=== PATIENT | female | born 1930 | race Caucasian/White ===

== ENCOUNTER 2017-07-28 06:04 | Emergency (ER) | payer MEDICARE ==
--- NOTE | 2017-07-28 06:44 | Emergency Department Record ---
History of Present Illness - General Chief Complaint: Fall Injury Stated Complaint: FALL Time Seen by Provider: 07/28/17 06:23 Source: Patient Mode of Arrival: EMS Limitations: No limitations - History of Present Illness Initial comments: 86 yo female presents to ED for evaluation of increased confusion "at night" per the patient and her son at the bedside. Patient reports that she has increased urinary frequency at night, and that she was unable to get back into bed this morning resulting the patient calling her son for help. Patient denies focal weakness on examination and denies fall or injury. Patient was seen 07/26 for possible TIA, was subsequently diagnosed with UTI and started on Keflex. Son reports that the patient was outdoors cleaning her sidewalk the afternoon after she was taken to the Hospital and back to her baseline. Patient' s son reports that the patient has not seen her PCP for these symptoms. Onset/Timin -: Minutes(s) Consistency: Intermittent Improves with: None Worsens with: None Associated Symptoms: Denies other symptoms Treatments Prior to Arrival: None - [place] Coma Scale Eye Response: (4) Open spontaneously Motor Response: (6) Obeys commands Verbal Response: (5) Oriented Sharda Total: 15 - Related Data Allergies Allergy/AdvReac Type Severity Reaction Status Date / Time No Known Drug Allergies Allergy Unverified 05/31/17 16:30 Travel Screening - Travel/Exposure Within Last 30 Days Have you traveled within the last 30 days?: No - Travel Symptoms Symptom Screening: None Review of Systems Constitutional: Denies: Chills, Fever, Malaise, Night sweats Eyes: Denies: Eye discharge, Eye pain ENT: Denies: Congestion, Ear pain, Epistaxis Respiratory: Denies: Cough, Dyspnea Cardiovascular: Denies: Chest pain, Dyspnea on exertion, Edema Endocrine: Denies: Fatigue, Heat or cold intolerance Gastrointestinal: Denies: Abdominal pain, Nausea, Vomiting Genitourinary: Reports: Frequency. Denies: Incontinence, Retention Musculoskeletal: Denies: Arthralgia, Back pain, Gout, Joint swelling Skin: Denies: Bruising, Change in color Neurological: Reports: Confusion. 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) - GI Hx GI Disorders: No - Hx Genitourinary Disorders: No - ENDOCRINE Hx Endocrine Disorders: No - MUSCULOSKELETAL Hx Musculoskeletal Disorders: No - PSYCH Hx Psych Problems: Yes Hx Depression: Yes - HEMATOLOGY/ONCOLOGY Hx Hematology/Oncology Disorders: No Family Medical History Any Significant Family History?: Yes Hx Diabetes: Brother/Sister Physical Exam - General General Appearance: Alert, Oriented x3, Cooperative, No acute distress Limitations: No limitations - Head Head exam: Atraumatic, Normocephalic, Normal inspection Head exam detail: negative: Abrasion, Contusion, Quarles's sign, General tenderness, Hematoma, Laceration - Eye Eye exam: Normal appearance. negative: Conjunctival injection, Periorbital swelling, Periorbital tenderness, Scleral icterus - ENT Ear exam: negative: Auricular hematoma, Auricular trauma Nasal Exam: negative: Active bleeding, Discharge, Dried blood, Foreign body Mouth exam: negative: Drooling, Laceration, Muffled voice, Tongue elevation - Neck Neck exam: Normal inspection. negative: Meningismus, Tenderness - Respiratory Respiratory exam: Normal lung sounds bilaterally. negative: Rales, Respiratory distress, Rhonchi, Stridor - Cardiovascular Cardiovascular Exam: Regular rate, Normal rhythm, Normal heart sounds - GI/Abdominal GI/Abdominal exam: Soft. negative: Rebound, Rigid, Tenderness - Rectal Rectal exam: Deferred - exam: Deferred - Extremities Extremities exam: Normal inspection, Pedal edema (1+ edema bilaterally). negative: Calf tenderness, Tenderness - Back Back exam: Denies: CVA tenderness (R), CVA tenderness (L) - Neurological Neurological exam: Alert, Normal gait, Oriented X3 - Psychiatric Psychiatric exam: Normal affect, Normal mood - Skin Skin exam: Normal color. negative: Abrasion Type of lesion: negative: abrasion Course Vital Signs 07/28/17 06:06 Temperature 98.7 F Pulse Rate 61 Respiratory 16 Rate Blood Pressure 139/56 Pulse Ox 96 - Reevaluation(s) Reevaluation #1: 07/28/17 06:58 Previous records reviewed from [facility] 07/26/17: CT Brain: No acute process CXR: Some degree of cardiomegaly, mild interstitial pulmonary edema Laboratory results were reviewed and are grossly unremarkable for an acute process UA: 10-25 Epithelial cells 5-10 WBCs 0-2 RBCs Bacteria: None After examination of the patient, there is no clinical evidence for an acute CVA or focal weakness on examination. Following discussion with the patient and her son, will obtain laboratory studies and repeat UA (previous appears c/w contamination). Son is in agreement with the plan of care as discussed. Reevaluation #2: 07/28/17 07:25 Laboratory studies were reviewed and are grossly unremarkable for an acute process. Patient and her son were updated on all results, recommended follow-up with the patient's PCP for further evaluation of her night-time symptoms. Medical Decision Making - Lab Data Result diagrams: 07/28/17 06:56 07/28/17 06:45 Disposition Disposition: Discharge Clinical Impression: Nocturnal confusion, Urinary frequency Disposition: Home, Self-Care Condition: (2) Stable Instructions: Dysuria (ED) Additional Instructions: Return to ED if your symptoms worsen or if you have any concerns. Follow-up with your family doctor in 3-5 days as directed. Forms: Patient Portal Access Time of Disposition: 07:26 Quality - Quality Measures Quality Measures: N/A - Blood Pressure Screening Does Patient Have Any of the Following: Active Dx of HTN Blood Pressure Classification: Pre-Hypertensive BP Reading Systolic Measurement: 139 Diastolic Measurement: 56 Screening for High Blood Pressure: Patient Exclusion, Hx of HTN [G9744]
[2017-07-28] MEDS ORDERED: 0.9 % SODIUM CHLORIDE 1000ML 500 ML IV SCH (06:45)
[2017-07-28 06:54] LABS: BASO % 0.1 % (0-6); EOS % 1.9 % (0-6); GRAN % 69.5 % (47-80); HEMOGLOBIN 12.4 gm/dl (11.6-16.0); LYMPH % 15.8 % (16-45); MEAN CORPUSCULAR HEMOGLOBIN 29.2 pg (27-33); MEAN CORPUSCULAR HGB CONC 31.8 g/dl (32-36); MEAN PLATELET VOLUME 9.9 fl (7.4-10.4); MONO % 12.7 % (0-9); PLATELET COUNT 283 K/uL (130-400); RED BLOOD COUNT 4.24 M/uL (3.80-5.40); RED CELL DISTRIBUTION WIDTH 13.5 % (11.5-14.5); WHITE BLOOD COUNT W/O DIFF 6.9 K/uL (4.2-12.2)
[2017-07-28 07:07] LABS: BLOOD UREA NITROGEN 18 mg/dL (8-23); CREATININE 0.5 mg/dL (0.5-0.9); EST GLOMERULAR FILTRATION RATE > 60 mL/min
[2017-07-28 07:08] LABS: TOTAL PROTEIN 6.2 g/dL (6.6-8.7)
[2017-07-28 07:10] LABS: GLUCOSE,RANDOM 104 mg/dL (74-109)
[2017-07-28 07:12] LABS: ALB/GLOB RATIO 1.6 (1.1-1.8); ALBUMIN 3.8 g/dL (4.0-5.0); ALT/SGPT 10 U/L (<33); AST/SGOT 15 U/L (10.0-35.0)
[2017-07-28 07:13] LABS: ALKALINE PHOSPHATASE 86 U/L (35-104)
[2017-07-28 07:15] LABS: URINE APPEARANCE CLEAR; URINE BILIRUBIN NEGATIVE (NEGATIVE); URINE BLOOD NEGATIVE (NEGATIVE); URINE COLOR YELLOW; URINE GLUCOSE (UA) NEGATIVE (NEGATIVE); URINE KETONE NEGATIVE (NEGATIVE); URINE LEUKOCYTE ESTERASE NEGATIVE (NEGATIVE); URINE NITRITE NEGATIVE (NEGATIVE); URINE PROTEIN NEGATIVE (NEGATIVE); URINE UROBILINOGEN 0.2 E.U./dL (0.20 - 1.00)
== END 2017-07-28 07:48 | disposition home or self-care (01) ==
LOC: ER 06:04
DX: R41.0 Disorientation, unspecified (principal); R35.0 Frequency of micturition; I10 Essential (primary) hypertension
CPT/HCPCS: 80053; 81003; 85025; 96360; 99284; J7030

== ENCOUNTER 2017-10-18 01:40 | Emergency (ER) | payer MEDICARE ==
--- NOTE | 2017-10-18 01:58 | Emergency Department Record ---
History of Present Illness - General Chief Complaint: Shortness of breath Stated Complaint: [place]OT[place] Time Seen by Provider: 10/18/17 01:45 Source: Patient, Family Mode of Arrival: Wheelchair Limitations: Altered mental status - History of Present Illness Initial Comments: 86 yo female presents with her granddaughter (Desi Taylor) due to several concerns. The granddaughter stays with the patient on weekends. She states she has been a little "off" all day. Her appetite has been decreased. Around 8pm she seemed tired and slower. The granddaughter thought her breathing looked "shallow". At this point she was able to put her to bed. She woke up an hour ago standing in her room screaming saying she can't talk or walk. She states the patient said her back hurt. The patient is oriented to name, [facility], family (her granddaughter). She denies headache, chest pain, shortness of breath, or dizziness. She states she has dry mouth. She has a mild pain left lower back "wear her pant's line is at". No vomiting, diarrhea, swelling, falls or injury. Dr Hartmann is the PCP per the daughter. Three years ago she had and ICH from fall. No recent falls. The patient recalls her prior PCP was Dr Ford. The granddaughter states she underwent testing at [facility] outpatient geriatric specialist and was diagnosed with moderate dementia in September 2017. The granddaughter states she gets "sun downer's" every night for several months. The symptoms are confusion, hallucinations. Her son from [place], [place] has moved in the with her the last few months with the granddaughter helping on the weekends. She is alone during the day and with him at night. Complaint: Shortness of breath -: Hour(s) Severity: Moderate Quality: Other Consistency: Constant Improves With: Nothing Worsens With: Nothing Known History Of: Other Context: Other Associated Symptoms: Denies other symptoms Treatments Prior to Arrival: None - Related Data Home Medications Medication Instructions Recorded Confirmed Last Taken Quetiapine Fumarate [Seroquel] 25 mg PO QHS 10/18/17 10/18/17 Unknown Allergies Allergy/AdvReac Type Severity Reaction Status Date / Time No Known Drug Allergies Allergy Unverified 09/29/17 14:33 Review of Systems Constitutional: Reports: Malaise, Weakness. Denies: Chills, Fever Eyes: Denies: Eye discharge ENT: Denies: Congestion, Ear pain, Epistaxis, Throat pain Respiratory: Reports: Dyspnea. Denies: Cough, Hemoptysis, Stridor, Wheezes Cardiovascular: Denies: Chest pain, Palpitations, Syncope Endocrine: Reports: Fatigue. Denies: Polydipsia, Polyuria Gastrointestinal: Denies: Abdominal pain, Diarrhea, Nausea, Vomiting Genitourinary: Reports: Frequency. Denies: Dysuria Musculoskeletal: Reports: Back pain. Denies: Arthralgia, Joint swelling, Myalgia Skin: Denies: Bruising, Change in color, Rash Neurological: Reports: Abnormal gait, Weakness. 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) - GI Hx GI Disorders: No - Hx Genitourinary Disorders: No - ENDOCRINE Hx Endocrine Disorders: No - MUSCULOSKELETAL Hx Musculoskeletal Disorders: No - PSYCH Hx Psych Problems: Yes Hx Depression: Yes - HEMATOLOGY/ONCOLOGY Hx Hematology/Oncology Disorders: No Family Medical History Hx Diabetes: Brother/Sister Physical Exam - General General Appearance: Alert, Cooperative, No acute distress, Other (She is oriented to person, place, family member, much of her past (Dr Ford was mention as her prior PCP)) - Head Head exam: Atraumatic, Normocephalic, Normal inspection - Eye Eye exam: Normal appearance, PERRL. negative: Conjunctival injection, Periorbital swelling - ENT ENT exam: Normal exam, Mucous membranes dry Ear exam: Normal external inspection Nasal Exam: Normal inspection Mouth exam: Normal external inspection - Neck Neck exam: Normal inspection - Respiratory Respiratory exam: Normal lung sounds bilaterally, Other (No labored). negative : Accessory muscle use, Respiratory distress, Rhonchi, Stridor, Wheezes - Cardiovascular Cardiovascular Exam: Regular rate, Normal rhythm, Normal heart sounds Peripheral Pulses: 2+: Radial (R), Radial (L) - GI/Abdominal GI/Abdominal exam: Soft. negative: Distended, Guarding, Rebound, Rigid, Tenderness - Rectal Rectal exam: Deferred - exam: Abnormal external exam (prolapsed bladder - chronic) - Extremities Extremities exam: Normal inspection, Normal capillary refill. negative: Calf tenderness, Full ROM, Joint swelling, Pedal edema, Tenderness - Back Back exam: Reports: Normal inspection. Denies: CVA tenderness (R), CVA tenderness (L), Paraspinal tenderness, Tenderness - Neurological Neurological exam: Alert, CN II-XII intact, Normal gait (steady gate with minimal assist - baseline per the granddaughter), Other (baseline mental status per the granddaughter.). negative: Abnormal gait, Motor sensory deficit - Psychiatric Psychiatric exam: Anxious - Skin Skin exam: Dry, Intact, Normal color, Warm Course - Reevaluation(s) Reevaluation #1: EMR reviewed 09/29/[address] Hartmann to establish care. Of note she was seen for confusion episodes at bedtime. 10/18/17 02:05 EKG #1: 0143 Rate: 64 Rhythm: sinus Sharps: left Intervals: Qtc 490 ST segments: No acute ST changes Prior: No changes from 07/03/14 10/18/17 02:06 EMR reviewed. The patient was seen in the [facility] ED July 2017 for increased confusion at night as well. 10/18/17 02:12 The granddaughter provides the history the night time confusion has been ongoing for months. He son from [place] has been living with her during the week and she provides relief on weekends. Per the granddaughter the patient is alone during the daytime and the son is present at night. They have not sought and social work assistance for resources or options at this point. 10/18/17 02:18 No acute changes on the CBC or BMP 10/18/17 02:30 The LFT's are normal 10/18/17 02:48 TSH 3.6 10/18/17 03:20 The UA is negative The RVAD HCT was reviewed. No acute findings. The CXR was negative for acute findings. I have spoken at length with the granddaughter. There are no acute findings at this time. She agrees the patient is a baseline. No acute indication for admission as she will be with the patient and turn her care over to the patient' s son tomorrow. We will make a social work consult to contact the family to enquire on resources for them in caring for the patient. She is at baseline at the time of DC 10/18/17 03:40 The son in [place] was undated on the ED visit 10/18/17 04:17 Medical Decision Making - Lab Data Result diagrams: 10/18/17 01:51 10/18/17 01:51 Disposition Disposition: Discharge Clinical Impression: Dementia, Back pain Disposition: Home, Self-Care Condition: (1) Good Instructions: Dementia (ED) Additional Instructions: Call your family doctor. Call to schedule the next available appointment for a recheck. Return to ED if your symptoms worsen or if you have any new concerns. Review the final Emergency Record and test results with your doctor on follow up Call the Telesales Supervisor at [phone] to enquire about meeting to learn about resources for caring for Mrs. Taylor needs Forms: Patient Portal Access Time of Disposition: 03:40 Quality - Quality Measures Quality Measures: N/A - Blood Pressure Screening Does Patient Have Any of the Following: Active Dx of HTN Blood Pressure Classification: Hypertensive Reading Systolic Measurement: 143 Diastolic Measurement: 61 Screening for High Blood Pressure: Patient Exclusion, Hx of HTN [G9744] Pre-Hypertensive Follow-up Interventions: Referral to alternative/primary care provider.
[2017-10-18 01:59] LABS: BASO % 0.4 % (0-6); EOS % 4.1 % (0-6); GRAN % 62.8 % (47-80); HEMATOCRIT 40.6 % (35.0-47.0); HEMOGLOBIN 12.7 gm/dl (11.6-16.0); LYMPH % 18.7 % (16-45); MEAN CELL VOLUME 90.8 fl (81-97); MEAN CORPUSCULAR HEMOGLOBIN 28.4 pg (27-33); MEAN CORPUSCULAR HGB CONC 31.3 g/dl (32-36); MEAN PLATELET VOLUME 9.8 fl (7.4-10.4); PLATELET COUNT 311 K/uL (130-400); RED BLOOD COUNT 4.47 M/uL (3.80-5.40); RED CELL DISTRIBUTION WIDTH 14.5 % (11.5-14.5); WHITE BLOOD COUNT W/O DIFF 7.3 K/uL (4.2-12.2)
[2017-10-18 02:11] LABS: BLOOD UREA NITROGEN 18 mg/dL (8-23); CREATININE 0.6 mg/dL (0.5-0.9); EST GLOMERULAR FILTRATION RATE > 60 mL/min
[2017-10-18 02:12] LABS: TOTAL PROTEIN 6.6 g/dL (6.6-8.7)
[2017-10-18 02:14] LABS: GLUCOSE,RANDOM 105 mg/dL (74-109)
[2017-10-18 02:17] LABS: ALB/GLOB RATIO 1.4 (1.1-1.8); ALBUMIN 3.9 g/dL (4.0-5.0); ALKALINE PHOSPHATASE 107 U/L (35-104); ALT/SGPT 31 U/L (<33); AST/SGOT 27 U/L (10.0-35.0)
[2017-10-18 03:06] LABS: URINE APPEARANCE CLEAR; URINE BILIRUBIN NEGATIVE (NEGATIVE); URINE BLOOD LARGE (NEGATIVE); URINE COLOR YELLOW; URINE GLUCOSE (UA) NEGATIVE (NEGATIVE); URINE KETONE NEGATIVE (NEGATIVE); URINE LEUKOCYTE ESTERASE TRACE (NEGATIVE); URINE NITRITE NEGATIVE (NEGATIVE); URINE PROTEIN NEGATIVE (NEGATIVE); URINE UROBILINOGEN 0.2 E.U./dL (0.20 - 1.00)
[2017-10-18 03:15] LABS: URINE EPITHELIAL CELLS 0 - 2 (FEW); URINE WBC 0 - 2 (0-2/hpf)
--- NOTE | 2017-10-20 13:40 | RADIOLOGY REPORT ---
EXAM: CHEST, TWO VIEWS HISTORY: SHORTNESS OF BREATH. ALTERED MENTAL STATUS. DIZZINESS. TECHNIQUE: AP and lateral upright views of the chest were obtained. Comparison: 05/25/14. FINDINGS: The heart, mediastinum, and pulmonary vasculature are normal. Calcified right hilar lymph nodes are present. A stable calcified granuloma is present at the right lung base. There are no acute infiltrates or effusions. There is no pneumothorax. The bones appear intact. IMPRESSION: 1. NO ACUTE CHEST PATHOLOGY. 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 JOB NUMBER: [id number] [facility]
--- NOTE | 2017-10-20 13:47 | CT SCAN REPORT ---
EXAM: CT SCAN OF THE BRAIN WITHOUT CONTRAST HISTORY: ALTERED MENTAL STATUS. DIZZINESS. TECHNIQUE: Standard CT imaging of the brain was performed in the axial plane without contrast. Comparison: 10/12/14. FINDINGS: The ventricles and subarachnoid spaces are normal for the patient's age. Minor chronic small vessel ischemic changes are present within the periventricular and subcortical white matter of both cerebral hemispheres. There is no mass, mass effect, intracranial hemorrhage, visible acute infarct, or abnormal extraaxial fluid. The skull is intact. The orbits, sinuses, and mastoids are normal. IMPRESSION: NO ACUTE INTRACRANIAL ABNORMALITY. JOB NUMBER: [id number] [facility]TD[facility]
== END 2017-10-18 03:56 | disposition home or self-care (01) ==
LOC: ER 01:40
DX: M54.5 Low back pain (principal); F03.90 Unspecified dementia, unspecified severity, without behavioral disturbance, psychotic disturbance, mood disturbance, and anxiety; R06.02 Shortness of breath; I10 Essential (primary) hypertension
CPT/HCPCS: 70450; 71046; 80053; 81001; 83880; 84443; 84484; 85025; 93005; 93010; 99284

== ENCOUNTER 2018-03-10 00:26 | Emergency (ER) | payer MEDICARE ==
--- NOTE | 2018-03-10 00:48 | Emergency Department Record ---
History of Present Illness - General Chief Complaint: Fall Injury Stated Complaint: FELL HIT HEAD Time Seen by Provider: 03/10/18 00:38 Source: Patient, Family Mode of Arrival: Ambulatory Limitations: No limitations - History of Present Illness Initial Comments: The patient is here with her son due to possibly falling and injuring her head about 2 hours ago. She has a hx of dementia and was alone at the time and tripped possibly hitting her head on a chair. The patient denies any LOC and also presently denies any SEXTON. Per her son there has been no new confusion or any vomiting, or balance issues. The patient does have a hx of a subdural 3-4 years ago from a fall. She is not on any blood thinners. MD Complaint: Fall Onset/Timin -: Hour(s) Fall From: Standing When Fall Occurred: 1-3 hours [employer] Fall Witnessed: No Place Fall Occurred: Home Loss of Consciousness: None Prolonged Down Time?: No Symptoms Prior to Fall: None Location: Head Severity scale (1-10): 5 Quality: Aching Context: Tripped/slipped Associated Symptoms: Denies - [place] Coma Scale Eye Response: (4) Open spontaneously Motor Response: (6) Obeys commands Verbal Response: (5) Oriented Sharda Total: 15 - Related Data Home Medications Medication Instructions Recorded Confirmed Last Taken Quetiapine Fumarate [Seroquel] 25 mg PO QHS 03/10/18 03/10/18 Unknown Allergies Allergy/AdvReac Type Severity Reaction Status Date / Time No Known Drug Allergies Allergy Verified 03/10/18 00:29 Travel Screening - Travel/Exposure Within Last 30 Days Have you traveled within the last 30 days?: No - Travel Symptoms Symptom Screening: None Review of Systems Constitutional: Denies: Chills, Fever Eyes: Denies: Eye discharge ENT: Denies: Congestion, Other Cardiovascular: Denies: Arrhythmia Gastrointestinal: Denies: Nausea Genitourinary: Denies: Dysuria Musculoskeletal: Denies: Back pain Skin: Denies: Bruising Past Medical History - SOCIAL HISTORY Smoking Status: Never smoker - RESPIRATORY Hx Respiratory Disorders: No - CARDIOVASCULAR Hx Cardio Disorders: Yes Hx Hypertension: Yes - NEURO Hx Neuro Disorders: Yes Comment:: hemmorhage x2 (brain)-S/P fall - GI Hx GI Disorders: No - Hx Genitourinary Disorders: Yes Hx Bladder Problem: Yes (control issues) - ENDOCRINE Hx Endocrine Disorders: No - MUSCULOSKELETAL Hx Musculoskeletal Disorders: No - PSYCH Hx Psych Problems: Yes Hx Depression: Yes - HEMATOLOGY/ONCOLOGY Hx Hematology/Oncology Disorders: No Family Medical History Any Significant Family History?: Yes Hx Diabetes: Brother/Sister Physical Exam - General General Appearance: Alert, Cooperative, No acute distress - Head Head exam: Atraumatic, Normocephalic, Normal inspection (There are no signs of any head trauma.) - Eye Eye exam: Normal appearance, PERRL - ENT Throat exam: Normal inspection. negative: Tonsillar erythema, Tonsillar exudate - Neck Neck exam: Normal inspection, Full ROM. negative: Tenderness - Respiratory Respiratory exam: Normal lung sounds bilaterally. negative: Respiratory distress - Cardiovascular Cardiovascular Exam: Regular rate, Normal rhythm, Normal heart sounds - GI/Abdominal GI/Abdominal exam: Soft, Normal bowel sounds. negative: Tenderness - Extremities Extremities exam: Normal inspection, Full ROM, Normal capillary refill. negative: Tenderness - Neurological Neurological exam: Alert, Normal gait. negative: Abnormal gait, Altered, Motor sensory deficit, Oriented X3 (The patient is oriented to name and age but not date or place. That is chronic for her per her son.) - Psychiatric Psychiatric exam: negative: Anxious Course Vital Signs 03/10/18 00:31 Temperature 97.7 F Pulse Rate 68 Respiratory 20 Rate Blood Pressure 147/69 Pulse Ox 96 - Reevaluation(s) Reevaluation #1: The patient is doing very well at this time. She is acting appropriately per her son and she denies any pain. I did discuss the CT findings with the patient ' son and also the incidental finding of the thyroid nodule. She is to F/U with her PCP next week further evaluation. 03/10/18 01:33 Medical Decision Making - Data Complexity MDM Data: X-Ray Ordered and/or Reviewed - Radiology Data Radiology results: Report reviewed (Head CT: Neg for acute changes. Cervical CT : neg for acute changes. Incidental findings of 1 cm thyroid nodule.) Disposition Disposition: Discharge Clinical Impression: Head injury due to trauma Qualifiers: Encounter type: initial encounter Qualified Code(s): S09.90XA - Unspecified injury of head, initial encounter Disposition: Home, Self-Care Condition: (2) Stable Instructions: Fall Prevention for Older Adults (ED) Additional Instructions: Please use Tylenol for pain and return to the ER for any problems. Forms: Patient Portal Access Time of Disposition: 01:31 Quality - Quality Measures Quality Measures: Blunt Head Trauma (>2yr) - Blunt Head Trauma - Adult Quality Measure: Measure #415: Utilization of CT for Minor Blunt Head Trauma ICD10 Codes Entered: Yes View Details: Yes Was CT ordered: Yes Does Patient Have Any of the Following: Taking Antiplatelet Med Patient Presented Within 24 Hours of Injury: Yes Sharda Score: Please complete Sharda Coma Scale above Utilization of CT for Minor Blunt Head Trauma: Patient Excluded [G9531] - Blood Pressure Screening View Details: Yes Does Patient Have Any of the Following: No Blood Pressure Classification: Hypertensive Reading Systolic Measurement: 147 Diastolic Measurement: 69 Screening for High Blood Pressure: < First Hypertensive BP, F/U Documented > [ G8950] First Hypertensive Follow-up Interventions: Referral to alternative/primary care provider.
--- NOTE | 2018-03-11 14:29 | CT SCAN REPORT ---
EXAM: CT OF THE BRAIN WITHOUT CONTRAST HISTORY: FALL WITH TRAUMA TO HEAD. TECHNIQUE: Routine noncontrast CT examination of the head was obtained. Comparison: CT head without contrast dated 10/18/17. FINDINGS: The subarachnoid spaces are again noted to be dilated consistent with atrophy. The ventricles are not enlarged. No new area of abnormally increased or decreased attenuation is noted throughout the brain substance. Minor periventricular white matter lucencies are again noted scattered in each cerebral hemisphere consistent with chronic small vessel ischemia. No abnormal extraaxial fluid collection is seen. The visualized paranasal sinuses and mastoid air cells are clear. No skull fracture is identified. The orbits as visualized are unremarkable with the exception of cataract surgery changes on the right. IMPRESSION: NO CT EVIDENCE OF AN ACUTE INTRACRANIAL ABNORMALITY NOR SKULL FRACTURE WITHOUT CHANGE IN APPEARANCE OF THE BRAIN SINCE 10/18/17. JOB NUMBER: [id number] [facility]TDD
--- NOTE | 2018-03-11 14:38 | CT SCAN REPORT ---
EXAM: CT OF THE CERVICAL SPINE WITHOUT CONTRAST HISTORY: FALL WITH TRAUMA TO HEAD. TECHNIQUE: Thin collimation helical CT examination of the cervical spine was performed in the axial plane without intravenous contrast administration. Coronal and sagittal reformatted images are generated and reviewed. Comparison: No prior imaging of the cervical spine available for comparison. Same day noncontrast CT of the head. Facial bone CT dated 07/03/14. FINDINGS: There is diffuse osteopenia. Mild reversal of the normal cervical lordosis at the C4 level associated with minimal retrolisthesis of C4 on C5 and minimal anterolisthesis of C3 on C4. This does not appear significantly changed since the 2015 CT facial bone examination. Minimal anterolisthesis of C7 on T1. The vertebral bodies are otherwise normal in alignment and height. No acute fracture, destructive bone lesion or prevertebral soft tissue swelling. Multilevel degenerative disk/degenerative end plate changes are identified most pronounced at the C4-C5, C5-C6 and C6-C7 levels where the changes are moderate in degree. No gross osseous cervical spinal stenosis. There is minor narrowing of the left C3-C4 neural foramen due to uncovertebral joint and facet joint spurring. Mild bilateral neural foraminal narrowing is present at the C4- C5 level due to retrolisthesis and uncovertebral joint spurring. The remaining neural foramina are patent. Multilevel facet arthropathy generally mild in degree though is at least moderate on the right at the C7-T1 level. The right C2-C3 facet joint is fused. There is an area of relative hypodensity within the posterior aspect of the left thyroid lobe measuring approximately 10 mm. This may relate to artifact though a hypodense nodule is not excluded. Further evaluation with thyroid ultrasound is recommended. Mild biapical lung scarring. IMPRESSION: 1. NO ACUTE FRACTURE, SUSPICIOUS SUBLUXATION, OR PREVERTEBRAL SOFT TISSUE SWELLING. 2. MULTILEVEL DEGENERATIVE CHANGES DETAILED ABOVE ASSOCIATED WITH REVERSAL OF THE NORMAL CERVICAL LORDOSIS AT THE C4 LEVEL AND ASSOCIATED MINOR MULTILEVEL SPONDYLOLISTHESIS. JOB NUMBER: [id number] [facility]
== END 2018-03-10 01:40 | disposition home or self-care (01) ==
LOC: ER 00:26
DX: S09.90XA Unspecified injury of head, initial encounter (principal); E04.1 Nontoxic single thyroid nodule; R40.2412 Glasgow coma scale score 13-15, at arrival to emergency department; I10 Essential (primary) hypertension; F03.90 Unspecified dementia, unspecified severity, without behavioral disturbance, psychotic disturbance, mood disturbance, and anxiety; W01.190A Fall on same level from slipping, tripping and stumbling with subsequent striking against furniture, initial encounter; Y92.009 Unspecified place in unspecified non-institutional (private) residence as the place of occurrence of the external cause
CPT/HCPCS: 70450; 72125; 99283; 99284

== ENCOUNTER 2019-01-07 13:53 | Emergency (ER) | payer MEDICARE ==
[2019-01-07 15:04] LABS: ABSOLUTE NEUTROPHIL COUNT 5.58; BASO % 0.2 % (0-6); EOS % 4.5 % (0-6); GRAN % 68.6 % (47-80); HEMATOCRIT 43.3 % (35.0-47.0); HEMOGLOBIN 13.8 gm/dl (11.6-16.0); LYMPH % 15.3 % (16-45); MEAN CORPUSCULAR HGB CONC 31.9 g/dl (32-36); MEAN PLATELET VOLUME 9.6 fl (7.4-10.4); MONO % 11.4 % (0-9); PLATELET COUNT 357 K/uL (130-400); RED BLOOD COUNT 4.92 M/uL (3.80-5.40); RED CELL DISTRIBUTION WIDTH 14.9 % (11.5-14.5); WHITE BLOOD COUNT W/O DIFF 8.2 K/uL (4.2-12.2)
[2019-01-07 15:14] LABS: BLOOD UREA NITROGEN 18 mg/dL (8-23); CREATININE 0.7 mg/dL (0.5-0.9); EST GLOMERULAR FILTRATION RATE > 60 mL/min
[2019-01-07 15:15] LABS: TOTAL PROTEIN 7.4 g/dL (6.6-8.7)
[2019-01-07 15:17] LABS: GLUCOSE,RANDOM 177 mg/dL (74-109)
[2019-01-07 15:19] LABS: ALT/SGPT 18 U/L (<33); AST/SGOT 28 U/L (10.0-35.0)
[2019-01-07 15:20] LABS: ALB/GLOB RATIO 1.4 (1.1-1.8); ALBUMIN 4.3 g/dL (4.0-5.0); ALKALINE PHOSPHATASE 104 U/L (35-104)
--- NOTE | 2019-01-07 15:37 | CT SCAN REPORT ---
EXAMINATION: CT Head without IV Contrast EXAM DATE: 01/07/2019 3:29 PM TECHNIQUE: Standard protocol CT images of the head were obtained without intravenous contrast. Seaman l and sagittal reconstructed images were created. INDICATION: confusion COMPARISON: 03/10/2018 HAND DOMINANCE: Unknown. ENCOUNTER: Not applicable FINDINGS: 1. There is no intracranial mass, midline shift, extraaxial fluid collection or hemorrhage. 2. The ventricles, sulci and cisterns are normal. 3. There are no suspicious area of altered attenuation. 4. There is no fracture. 5. Patient's had a lens implant on the right. Incompletely visualized periapical lucency around 2 ri ght maxillary teeth may represent periodontal disease. Periapical lucency around left maxillary tooth 11 suggestive of periodontal disease. Mastoid air cells are clear. Intermediate density external aud itory canal bilaterally may represents cerumen. IMPRESSION: 1. No acute intracranial process evident. Dictated by: Bronson Castellno DO on 01/07/2019 3:32 PM. .
[2019-01-07 16:28] LABS: URINE APPEARANCE CLEAR; URINE BILIRUBIN NEGATIVE (NEGATIVE); URINE BLOOD NEGATIVE (NEGATIVE); URINE COLOR YELLOW; URINE GLUCOSE (UA) NEGATIVE (NEGATIVE); URINE KETONE NEGATIVE (NEGATIVE); URINE LEUKOCYTE ESTERASE SMALL (NEGATIVE); URINE NITRITE NEGATIVE (NEGATIVE); URINE PROTEIN NEGATIVE (NEGATIVE); URINE UROBILINOGEN 0.2 E.U./dL (0.20 - 1.00)
[2019-01-07 16:37] LABS: URINE BACTERIA 1+; URINE RBC NONE SEEN (NONE SEEN)
--- NOTE | 2019-01-07 17:02 | Emergency Department Record ---
History of Present Illness - General Chief Complaint: Crisis Evaluation Stated Complaint: UNCONTROLABLE/CONFUSED Time Seen by Provider: 01/07/19 14:31 Source: Patient Mode of Arrival: Ambulatory Limitations: No limitations Travel/Exposure to [place] Within 21 Days of Symptoms: No - History of Present Illness Initial Comments: pt was brought in by family because of increasing confusion and auditory hallucinations. she has been talking to herself and thinking other people are there. this is not new but is getting progressively worse MD Complaint: Altered mental status -: Unknown Associated Psychiatric Symptoms: Auditory hallucinations History of same: Yes Quality: Getting worse Improves With: None Worsens With: None Context: Unsure Associated Symptoms: Denies other symptoms Treatments Prior to Arrival: None - Sharda Coma Scale Eye Response: (4) Open spontaneously Motor Response: (6) Obeys commands Verbal Response: (5) Oriented Sharda Total: 15 - Related Data Allergies Allergy/AdvReac Type Severity Reaction Status Date / Time No Known Drug Allergies Allergy Verified 01/07/19 14:18 Review of Systems Reviewed: No additional complaints except as noted below Constitutional: Reports: As per HPI. Denies: Chills, Fever, Malaise, Night sweats, Weakness, Weight change Eyes: Reports: As per HPI. Denies: Eye discharge, Eye pain, Photophobia, Vision change ENT: Reports: As per HPI. Denies: Congestion, Dental pain, Ear pain, Epistaxis, Hearing loss, Throat pain Respiratory: Reports: As per HPI. Denies: Cough, Dyspnea, Hemoptysis, Stridor, Wheezes Cardiovascular: Reports: As per HPI. Denies: Arrhythmia, Chest pain, Dyspnea on exertion, Edema, Murmurs, Orthopnea, Palpitations, Paroxysmal nocturnal dyspnea, Rheumatic Fever, Syncope Endocrine: Reports: As per HPI. Denies: Fatigue, Heat or cold intolerance, Polydipsia, Polyuria Gastrointestinal: Reports: As per HPI. Denies: Abdominal pain, Constipation, Diarrhea, Hematemesis, Hematochezia, Melena, Nausea, Vomiting Genitourinary: Reports: As per HPI. Denies: Abnormal menses, Discharge, Dyspareunia, Dysuria, Frequency, Hematuria, Incontinence, Retention, Urgency Musculoskeletal: Reports: As per HPI. Denies: Arthralgia, Back pain, Gout, Joint swelling, Myalgia, Neck pain Skin: Reports: As per HPI. Denies: Bruising, Change in color, Change in hair/nails, Lesions, Pruritus, Rash Neurological: Reports: As per HPI. Denies: Abnormal gait, Confusion, Headache, Numbness, Paresthesias, Seizure, Tingling, Tremors, Vertigo, Weakness Psychiatric: Reports: As per HPI. Denies: Anxiety, Auditory hallucinations, Depression, Homicidal thoughts, Suicidal thoughts, Visual hallucinations Hematological/Lymphatic: Reports: As per HPI. Denies: Anemia, Blood Clots, Easy bleeding, Easy bruising, Swollen glands Past Medical History - SOCIAL HISTORY Smoking Status: Never smoker Alcohol Use: None Drug Use: None - RESPIRATORY Hx Respiratory Disorders: No - CARDIOVASCULAR Hx Cardio Disorders: Yes Hx Hypertension: Yes - NEURO Hx Neuro Disorders: Yes Comment:: hemmorhage x2 (brain)-S/P fall - GI Hx GI Disorders: No - Hx Genitourinary Disorders: Yes Hx Bladder Problem: Yes (control issues) - ENDOCRINE Hx Endocrine Disorders: No - MUSCULOSKELETAL Hx Musculoskeletal Disorders: No - PSYCH Hx Psych Problems: Yes Hx Depression: Yes - HEMATOLOGY/ONCOLOGY Hx Hematology/Oncology Disorders: No Family Medical History Any Significant Family History?: Yes Hx Diabetes: Brother/Sister Physical Exam - General General Appearance: Alert, Cooperative, Mild distress - Head Head exam: Normal inspection - Eye Eye exam: Normal appearance, PERRL, EOMI Pupils: Normal accommodation - ENT ENT exam: Normal exam, Mucous membranes moist, Normal external ear exam, Normal orophraynx Ear exam: Normal external inspection. negative: External canal tenderness Nasal Exam: Normal inspection. negative: Discharge, Sinus tenderness Mouth exam: Normal external inspection, Tongue normal Teeth exam: Normal inspection. negative: Dental caries Throat exam: Normal inspection. negative: Tonsillar erythema, Tonsillar exudate - Neck Neck exam: Normal inspection, Full ROM. negative: Tenderness - Respiratory Respiratory exam: Normal lung sounds bilaterally. negative: Respiratory distress - Cardiovascular Cardiovascular Exam: Regular rate, Normal rhythm, Normal heart sounds - GI/Abdominal GI/Abdominal exam: Soft, Normal bowel sounds. negative: Tenderness - Rectal Rectal exam: Deferred - exam: Deferred - Extremities Extremities exam: Normal inspection, Full ROM, Normal capillary refill. negative: Tenderness - Back Back exam: Reports: Normal inspection, Full ROM. Denies: Muscle spasm, Rash noted, Tenderness - Neurological Neurological exam: Alert, CN II-XII intact, Normal gait - Psychiatric Psychiatric exam: Anxious, Normal mood - Skin Skin exam: Dry, Intact, Normal color, Warm Course Vital Signs 01/07/19 14:21 Temperature 98.2 F Pulse Rate 71 Respiratory 20 Rate Blood Pressure 143/59 Pulse Ox 93 L - Reevaluation(s) Reevaluation #1: 01/07/19 17:[address] was neg for acute findings and lab findings. pt d/w family who want to take her home and f/u with dr ni on wednesday Reevaluation #2: 01/07/19 17:08 family was offered admission Medical Decision Making - Lab Data Result diagrams: 01/07/19 15:00 01/07/19 15:00 Lab Results 01/07/19 01/07/19 01/07/19 Range/Units 15:00 15:00 16:20 WBC 8.2 (4.2-12.2) K/uL RBC 4.92 (3.80-5.40) M/uL Hgb 13.8 (11.6-16.0) gm/dl Hct 43.3 (35.0-47.0) % MCV 88.0 (81-97) fl MCH 28.0 (27-33) pg MCHC 31.9 L (32-36) g/dl RDW 14.9 H (11.5-14.5) % Plt Count 357 (130-400) K/uL MPV 9.6 (7.4-10.4) fl Gran % 68.6 (47-80) % Lymphocytes % 15.3 L (16-45) % Monocytes % 11.4 H (0-9) % Eosinophils % 4.5 (0-6) % Basophils % 0.2 (0-6) % Absolute Neutrophils 5.58 Sodium 143 (136-145) mmol/L Potassium 4.5 (3.4-4.5) mmol/L Chloride 101 (98-107) mmol/L Carbon Dioxide 28.0 (22-29) mmol/L Anion Gap 14.0 (7-16) BUN 18 (8-23) mg/dL Creatinine 0.7 (0.5-0.9) mg/dL Estimated GFR > 60 mL/min Random Glucose 177 H (74-109) mg/dL Calcium 9.4 (8.8-10.2) mg/dL Total Bilirubin 0.30 (0.2-1.0) mg/dL AST 28 (10.0-35.0) U/L ALT 18 (<33) U/L Alkaline Phosphatase 104 (35-104) U/L Total Protein 7.4 (6.6-8.7) g/dL Albumin 4.3 (4.0-5.0) g/dL Globulin 3.1 (1.4-4.8) gm/dL Albumin/Globulin Ratio 1.4 (1.1-1.8) Urine Color Yellow Urine Appearance Clear Urine pH 5.5 (5.0-8.0) Ur Specific [place] 1.020 (1.002-1.030) Urine Protein Negative (NEGATIVE) Urine Glucose (UA) Negative (NEGATIVE) Urine Ketones Negative (NEGATIVE) Urine Blood Negative (NEGATIVE) Urine Nitrite Negative (NEGATIVE) Urine Bilirubin Negative (NEGATIVE) Urine Urobilinogen 0.2 (0.20 - 1.00) E.U./dL Ur Leukocyte Esterase Small H (NEGATIVE) Urine RBC None seen (NONE SEEN) Urine WBC 3 - 5 (0-2/hpf) Ur Epithelial Cells 3 - 6 (FEW) Urine Bacteria 1+ Disposition Disposition: Discharge Clinical Impression: Auditory hallucinations, Confusion and disorientation Disposition: Home, Self-Care Condition: (1) Good Instructions: Medical Clearance for Psychiatric Care (ED), Dementia (ED) Additional Instructions: follow up with dr ni on wednesday without fail. return sooner if worse. monitor closely Quality - Quality Measures Quality Measures: N/A - Blood Pressure Screening Does Patient Have Any of the Following: Active Dx of HTN Blood Pressure Classification: Hypertensive Reading Systolic Measurement: 143 Diastolic Measurement: 59 Screening for High Blood Pressure: Patient Exclusion, Hx of HTN [G9744]
== END 2019-01-07 17:27 | disposition home or self-care (01) ==
LOC: ER 13:53
DX: R44.0 Auditory hallucinations (principal); R41.0 Disorientation, unspecified; I10 Essential (primary) hypertension
CPT/HCPCS: 70450; 80053; 81001; 85025; 99284